=== PATIENT | female | born 1940 | race Two or more races ===

== ENCOUNTER 2024-06-18 10:18 | Emergency (ER) | payer MEDICARE, MEDICAID, SELFPAY ==
[2024-06-18 10:19] VITALS: BMI 31.1
[2024-06-18 10:33] VITALS: BP 190/78; BP 201/96; PULSE 49; RESP 19; TEMP 37; O2SAT 98
--- NOTE | 2024-06-18 10:48 | PD.EDRME ---
Rapid Medical Screening Exam RME Arrival date/time: 06/18/24 10:18 This is a 84-year-old female presented to the emergency department with complaints of left lower abdominal pain radiating to flank x 2 days. I have greeted and performed a focused initial assessment of this patient. Initial appropriate labs ordered at this time. A comprehensive ED assessment and evaluation of the patient and analysis of all test and completion of medical decision making process will be conducted by additional ED provider. Chief Complaint: Abdominal Pain Time Seen by Provider: 06/18/24 10:41 Vital signs: Vital Signs Temperature 98.6 F 06/18/24 10:33 Pulse Rate 49 L 06/18/24 10:33 Respiratory Rate 19 06/18/24 10:33 Blood Pressure 201/96 H 06/18/24 10:33 Pulse Oximetry (%) 98 06/18/24 10:33 Oxygen Delivery Method Room Air 06/18/24 10:33
[2024-06-18 11:21] LABS: Collection Type, Urine Clean Catch
[2024-06-18 11:24] LABS: Basophils # (Auto) 0.1 Thou/mm3 (0.0-0.2); Basophils % (Auto) 1 % (0-2.5); Eosinophils % (Auto) 0 % (0-10); Hematocrit 41.3 % (36.0-46.0); Hemoglobin 13.7 g/dL (12.0-16.0); Immature Granulocytes % (Auto) 0 % (0-0); Immature Granulocytes Auto 0.02 Thou/mm3 (0.00-0.00); Lymphocytes # (Auto) 1.8 Thou/mm3 (1.0-4.8); Lymphocytes % (Auto) 25 % (10-50); Mean Corpuscular HGB Conc 33.2 g/dl (31.0-37.0); Mean Corpuscular Hemoglobin 28.9 pg (25.0-35.0); Mean Corpuscular Volume 87 fL (80-100); Monocytes # (Auto) 0.5 Thou/mm3 (0.0-0.8); Monocytes % (Auto) 7 % (0-12); Neutrophils # (Auto) 4.8 Thou/mm3 (1.8-7.7); Neutrophils % (Auto) 67 % (37-80); Nucleated Red Blood Cell % 0 /100 WBC (0); Platelet Count 181 Thou/mm3 (140-440); RDW Standard Deviation 44.4 fL (36.4-46.3); Red Blood Count 4.74 Miln/mm3 (4.00-5.20); White Blood Count 7.2 Thou/mm3 (3.6-11.0)
[2024-06-18 11:26] LABS: Bilirubin,Urine Negative (Negative); Blood,Urine 1+ (Negative); Clarity,Urine Clear (Clear/Hazy); Color,Urine Yellow (Lt Yel-Yel); Glucose, Urine Negative (Negative); Ketones,Urine Negative (Negative); Leukocyte Esterase,Urine Negative (Negative); Nitrite,Urine Negative (Negative); PH,Urine 6.5 (5.0-7.0); Protein,Urine Trace (Neg - Trace); RBC,Urine 10 /hpf (0-3); Specific Gravity,Urine 1.026 (1.001-1.035); Squamous Epithelial Cell,Urine 1 /hpf (0-5); Urobilinogen,Urine Negative mg/dL (0.0-1.0); WBC,Urine < 1 /hpf (0-5)
[2024-06-18 11:37] LABS: INR 1.1 (0.9-1.3); Prothrombin Time 12.4 Seconds (9.0-12.2)
[2024-06-18 11:44] LABS: Alanine Aminotransferase 14 U/L (10-49); Albumin, Serum 4.5 gm/dL (3.4-4.8); Albumin/Globulin Ratio 1.5 (1.2-2.2); Alkaline Phosphatase 98 U/L (46-116); Anion Gap 8 (7-16); Aspartate Amino Transferase 27 U/L (0-34); BUN/Creatinine Ratio 24 Ratio (12-20); Bilirubin,Total 0.7 mg/dL (0.3-1.2); Blood Urea Nitrogen 24 mg/dL (9-23); Calcium 10.5 mg/dL (8.3-10.6); Calcium (Corrected) 10.5 mg/dL (8.5-10.1); Carbon Dioxide 28.5 mMol/L (20.0-31.0); Chloride 103 mMol/L (98-107); Estimated Creatinine Clearance 40.3 mL/min (>60); Globulin 3.1 gm/dL (2.3-3.5); Glucose 128 mg/dL (74-106); Lipase 51 U/L (12-53); Magnesium 2.2 mg/dL (1.6-2.6); Osmolality,Calculated 283 (275-295); Potassium 4.2 mMol/L (3.4-5.1); Sodium 139 mMol/L (136-145); Total Protein 7.6 gm/dL (5.7-8.2); Troponin I < 0.020 ng/mL (0.0-0.045); eGFR 56 See Note
--- NOTE | 2024-06-18 14:45 | XR_ITS ---
Examination: CT abdomen with intravenous contrast CT pelvis with intravenous contrast 2-D coronal reconstructions 2-D sagittal reconstructions Date and time of exam:June 18, 2024 1533 hours Comparison April 06, 2021 INDICATIONS: Onset left lower abdominal pain beginning 2 days ago. CTDI: vol (mGy) 10.2 DLP: (mGycm) 573 Technique: Multiple axial sections of the abdomen and pelvis have been obtained. 64 slice high-resolution scanner used. 3 mm axial sections have been obtained, post intravenous injection 60 cc [id number] 2-D sagittal, coronal reconstructions obtained. Low dose protocols were performed. One or more of the following dose reduction techniques were used; automated exposure control, adjustment of the mA and/or KV according to patient size, use of iterative reconstruction technique. Findings: Stable 19 mm pulmonary nodule with calcifications left midlung Mild enlargement cardiac contour Mild intrahepatic biliary tract dilatation Absent gallbladder No common bile duct stones noted Spleen is not enlarged No pancreatic mass no adrenal mass Moderate bilateral renal parenchymal scar formation, no hydronephrosis or ureteral calculi Aorta normal size Minute fat-containing umbilical hernia Normal appendix no bowel obstruction No pelvic mass Urinary bladder intact IMPRESSION: Moderate bilateral renal parenchyma scar formation, no hydronephrosis or renal calculi Normal appendix No bowel obstruction
--- NOTE | 2024-06-18 14:45 | PD.EDBACK ---
ED Back Injury Pain RME/HPI General Chief Complaint: Abdominal Pain Stated Complaint: LLQ ABD/L LOWER BACK PAIN X1 DAY Time Seen by Provider: 06/18/24 10:41 Arrival date/time: 06/18/24 10:18 RME / HPI RME / HPI Narrative: 84-year-old female patient with significant history of hypertension came in for evaluation regarding left lower abdominal pain. This been ongoing for the last 2 days, radiating to the left flank, described as sharp pain, severity 8 out of 10. Denies any fever vomiting diarrhea constipation dysuria hematuria or other complaints. Related Data Home Medications ?Medication ?Instructions ?Recorded ?Confirmed chlorthalidone 50 mg tablet 50 mg PO QDAY 06/01/18 12/18/18 losartan 100 mg tablet 100 mg PO QDAY 06/01/18 12/18/18 fluconazole 200 mg tablet 400 mg PO QDAY 12/11/18 12/18/18 loratadine 10 mg tablet 10 mg PO QDAY 12/11/18 12/18/18 Previous Rx's ?Medication ?Instructions ?Recorded acetaminophen 500 mg capsule 1,000 mg (2 x 500 mg) PO Q6H PRN 12/18/18 fever or pain #30 caps esomeprazole magnesium 20 mg 20 mg PO QDAY #20 caps 12/18/18 capsule,delayed release (Nexium) esomeprazole magnesium 20 mg 20 mg PO QDAY #20 caps 01/15/20 capsule,delayed release (Nexium) ondansetron HCl 4 mg tablet 4 mg PO QID PRN nausea and 01/15/20 (Zofran) vomiting #14 tabs hydrocodone 5 mg-acetaminophen 325 1 tab PO Q8H PRN pain #10 tabs 04/06/21 mg tablet meloxicam 7.5 mg tablet (Mobic) 7.5 mg PO BID #14 tabs 04/06/21 meloxicam 7.5 mg tablet 7.5 mg PO QDAY #14 tabs 04/17/22 dicyclomine 20 mg tablet 20 mg PO TID #30 tabs 06/18/24 Allergies Allergy/AdvReac Type Severity Reaction Status Date / Time No Known Allergies Allergy Verified 06/18/24 10:23 Review of Systems Review of Systems Narrative Review of Systems: Review of system reviewed and within normal limits except mentioned in HPI ED Exam Narrative Physical exam: VITAL SIGNS: Reviewed. GENERAL APPEARANCE: Alert and interactive, follows commands, no acute distress, HEAD AND FACE: Non-traumatic. ENT: PERRL, pink conjunctivitis, eyelid no trauma, Mucous membrane moist. NECK: Supple, nontender, no nuchal rigidity. CHEST: No tenderness, no crepitus, no paradoxical movement, no retractions. LUNGS: Clear, well ventilated, symmetric, no rales, no wheezing, no ronchi, no stridor, good breath sounds bilaterally. HEART: Regular rate, regular rhythm, no murmur, no gallops. ABDOMEN: Soft, positive bowel sounds, nondistended, no guarding, left lower quadrant tenderness, no rebound, no masses, RECTAL: Deferred. GENITAL: Deferred. NEUROLOGICAL: Gross motor function intact sensory function intact, Appropriate for age. MUSCULOSKELETAL: low back nontender, full range of motion. EXTREMITIES: Nontender, full range of motion. SKIN: Color pink, dry, no rash, no lacerations, no abrasions, no contusions. LYMPHATICS: Deferred. Course Quality Measures none Orders Category Date Time Status CT Screening NOW Care 06/18/24 14:45 Active EKG (ED ONLY) *Do not use* NOW Care 06/18/24 10:48 Completed NPO STAT Care 06/18/24 10:[address] abdomen pelvis w con Stat Exams 06/18/24 14:45 Completed EKG (ED Only) Stat Exams 06/18/24 10:48 Ordered CBC Stat Lab 06/18/24 11:14 Completed Comprehensive Metabolic Panel Stat Lab 06/18/24 11:14 Completed Lipase Stat Lab 06/18/24 11:14 Completed Magnesium Stat Lab 06/18/24 11:14 Completed Prothrombin Time with INR Stat Lab 06/18/24 11:14 Completed Troponin I Stat Lab 06/18/24 11:14 Completed Urinalysis Stat Lab 06/18/24 11:15 Completed Urine Culture Stat Lab 06/18/24 11:15 Received Vital Signs Vital signs: Vital Signs Temperature 98.6 F 06/18/24 10:33 Pulse Rate 49 L 06/18/24 10:33 Respiratory Rate 19 06/18/24 10:33 Blood Pressure 201/96 H 06/18/24 10:33 Pulse Oximetry (%) 98 06/18/24 10:33 Oxygen Delivery Method Room Air 06/18/24 10:33 Back Pain / Injury MDM Narrative MDM Narrative:: 84-year-old female patient with significant history of hypertension came in for evaluation regarding left lower abdominal pain. This been ongoing for the last 2 days, radiating to the left flank, described as sharp pain, severity 8 out of 10. Denies any fever vomiting diarrhea constipation dysuria hematuria or other complaints. Patient's workup today all came back normal. CT scan of the abdomen and pelvis also came back with no acute pathology. Results discussed with the patient and family. Patient data External records reviewed:: None Clinical information provided by:: patient Social determinants that could affect healthcare access:: none Patient has the following chronic illnesses:: hypertension How is presenting disease/condition affected by chronic disease/condition?: uneffected by Evaluation data The following diagnostics were reviewed and interpreted by me:: lab results and radiology exam(s) Lab and/or radiology exams considered but not ordered:: None Interpretation Summary: Patient's workup today all came back normal. CT scan of the abdomen and pelvis also came back unremarkable. Medications / Prescriptions Medications or Prescriptions considered but not ordered:: None Medication administrations:: None Consultations Consultation(s) initiated? (list below): No Diagnosis Differential diagnosis back pain/injury: renal colic and other (Abdominal pain, diverticulitis) Most likely diagnosis given after review of the tests above:: Abdominal pain Admission Indicated Admission indicated?: not indicated Explain why admission is indicated or not indicated:: None Admission Request Was there a request for admission?: No Disposition Plan Disposition Plan: Discharge Discharge Attestation Discharge Attestation: The patient and all family members were given an opportunity to ask questions and understood the discharge instructions. Discharge instructions specifically effects, indications for sooner follow up or return to the emergency department, and the expected course of current diagnosis. Patient condition: Stable Discharge Plan Plan Patient Disposition: HOME (Self Care) Disposition Comment: Stable Prescriptions/Referrals Prescriptions/Med Rec: New dicyclomine 20 mg tablet 20 mg PO TID Qty: 30 0RF No Action loratadine 10 mg Tablet 10 mg PO QDAY fluconazole 200 mg Tablet 400 mg PO QDAY acetaminophen 500 mg capsule 1,000 mg PO Q6H PRN (Reason: fever or pain) Qty: 30 0RF esomeprazole magnesium [Nexium] 20 mg capsule,delayed release(DR/EC) 20 mg PO QDAY Qty: 20 0RF ondansetron HCl [Zofran] 4 mg tablet 4 mg PO QID PRN (Reason: nausea and vomiting) Qty: 14 0RF esomeprazole magnesium [Nexium] 20 mg capsule,delayed release(DR/EC) 20 mg PO QDAY Qty: 20 0RF chlorthalidone 50 mg Tablet 50 mg PO QDAY losartan 100 mg Tablet 100 mg PO QDAY meloxicam [Mobic] 7.5 mg tablet 7.5 mg PO BID Qty: 14 0RF hydrocodone-acetaminophen 5-325 mg tablet 1 tab PO Q8H MDD 3 PRN (Reason: pain) Qty: 10 0RF meloxicam 7.5 mg tablet 7.5 mg PO QDAY Qty: 14 0RF Referrals: Cookie Piedra MD [Primary Care Provider] - In 1 week Problem List Clinical Impression: Endometriosis Patient/Caregiver Discharge Instructions Discharge Activity: activity as tolerated Education Materials: Abdominal Pain Additional Instructions: Thank you for the opportunity for serving you today. You are stable for discharged . You are advised to: Follow-up with your PCP in 1 to 2 days Return to ED for worsening of symptoms Increase oral fluids Take medication as prescribed Print Language: Greenlandic Stand Alone Forms: Archana Award Info., Patient Portal Info Letter PA/STEVEN Supervising Physician PA/STEVEN Supervising Physician: MD Althea
[2024-06-18 17:19] VITALS: BP 134/84; PULSE 78; RESP 16; O2SAT 99
== END 2024-06-18 17:20 | disposition home or self-care (01) ==
PROVIDERS: Nurse Practitioner Primary Care; Emergency Provider Emergency Medicine; PCP Obstetrics & Gynecology
DX: N80.9 Endometriosis, unspecified (principal); R10.32 Left lower quadrant pain; R00.1 Bradycardia, unspecified; I10 Essential (primary) hypertension
CPT/HCPCS: 36415; 74177; 80053; 81001; 83690; 83735; 84484; 85025; 85610; 87086; 93005; 99285; A4649; Q9967